=== PATIENT | male | born 1950 | race Caucasian/White ===

== ENCOUNTER 2023-12-28 14:25 | Inpatient (IN) | payer OTHER, MEDICARE ==
[~2023-12-28] VITALS: Ht 195.6 cm; Wt 115.2 kg
[2023-12-28 19:54] LABS: ALBUMIN 3.3 G/DL (3.4-5.0); ANION GAP 10 (8-16); BLOOD UREA NITROGEN 10 MG/DL (7-18); BUN/CREATININE RATIO 13.2 (10.0-20.0); CALCIUM 8.8 MG/DL (8.5-10.1); CHLORIDE 102 MMOL/L (99-107); CREATININE 0.76 MG/DL (0.60-1.10); GLUCOSE 120 MG/DL (70-104); POTASSIUM 3.6 MMOL/L (3.5-5.1); SODIUM 137 MMOL/L (135-145); TOTAL CARBON DIOXIDE 24.9 MMOL/L (24-32); eGFR > 90 ML/MIN
[2023-12-28 19:59] LABS: APTT 26 SECONDS (22-32); PROTHROMBIN TIME 10.9 SECONDS (9.0-12.0)
[2023-12-28 20:51] LABS: BASOPHILS % (AUTO) 0.6 % (0-1); EOSINOPHILS % (AUTO) 0.6 % (0-6); HEMATOCRIT 31.7 % (42.0-52.0); HEMOGLOBIN 10.9 g/dl (14.0-17.9); LYMPHOCYTES # (AUTO) 1.1 X10'3 (1.1-4.8); LYMPHOCYTES % (AUTO) 14.9 % (21-51); MEAN CORPUSCULAR HEMOGLOBIN 32.5 PG (27.0-31.0); MEAN CORPUSCULAR HGB CONC 34.2 g/dL (33.0-36.5); MEAN CORPUSCULAR VOLUME 95.1 FL (78-98); MEAN PLATELET VOLUME 7.5 FL (7.4-10.4); MONOCYTES # (AUTO) 0.6 X10'3 (0-0.9); NEUTROPHILS # (AUTO) 5.5 X10'3 (1.8-7.7); NEUTROPHILS % (AUTO) 75.9 % (42-75); PLATELET COUNT 253 X10'3 (140-440); RED BLOOD COUNT 3.34 X10'6 (4.70-6.10); RED CELL DISTRIBUTION WIDTH 13.4 % (11.5-14.5); WHITE BLOOD COUNT 7.3 X10'3 (4.5-11.0)
[2023-12-28] MEDS ORDERED: iohexol 300mg/ml 100ml inj. ONE (21:27)
[2023-12-28 22:43] LABS: CLARITY,URINE BLOODY (Clear); COLOR,URINE RED (Yellow); UA COLLECTION TYPE CLN CATCH MIDSTREAM
[2023-12-28 22:49] LABS: RBC,URINE TNTC /HPF (0-2)
[2023-12-28 22:52] LABS: SQUAMOUS EPITHELIAL CELL,UR NONE SEEN /LPF (FEW)
[2023-12-28 22:53] LABS: BACTERIA,URINE NONE SEEN /HPF (Neg); MUCUS STRANDS NONE SEEN /LPF (Neg); WBC,URINE 0-4 /HPF (0-4)
[2023-12-29] MEDS ORDERED: ondansetron/PF 4mg/2ml inj IV PRN (00:10)
[2023-12-29] MEDS ORDERED: magnesium Cl slow-release 64mg tablet PO PRN (00:10)
[2023-12-29] MEDS ORDERED: potassium Cl 20 mEq SR tablet PO PRN ×2 (00:10)
[2023-12-29] MEDS ORDERED: potassium Cl 40MEQ/1/2NS 520ml 520 ML IV PRN (00:10)
[2023-12-29] MEDS ORDERED: magnesium sulf-water 2g/50mL 50 ML IV PRN (00:10)
[2023-12-29] MEDS ORDERED: magnesium sulf-water 4G/100mL 100 ML IV PRN (00:10)
[2023-12-29] MEDS ORDERED: acetaminophen 325mg tablet PO PRN (00:10)
[2023-12-29] MEDS ORDERED: DEXTROSE 15 GM of carb/4 tabs (each vial/BOTTLE has 4 tablets) PO PRN ×2 (00:35)
[2023-12-29] MEDS ORDERED: dextrose 50%-water 50ml dispensing syringe IV PRN ×2 (00:35)
[2023-12-29] MEDS ORDERED: glucagon, human recombinant 1mg kit SUBCUT PRN (00:35)
[2023-12-29] MEDS: nicotine 14mg patch - 24hr TD ONE (00:45)
[2023-12-29] MEDS: normal saline 1000ml 1,000 ML IV SCH (01:00)
[2023-12-29 01:45] LABS: HEMOGLOBIN A1C 6.1 % (4.5-6.2)
[2023-12-29 01:50] LABS: CHOL/HDL RATIO 2.4 (0.00-4.99); CHOLESTEROL 92 MG/DL (0-200); HDL CHOLESTEROL 38 MG/DL (35-60); LDL CHOLESTEROL 51 MG/DL (50-100); TRIGLYCERIDES 47 MG/DL (20-135)
[2023-12-29] MEDS: INSULIN LISPRO 100 UNIT/ML INSULN.PEN MULTI-DOSE SQ SCH (07:00)
[2023-12-29 07:42] VITALS: BP 124/62; PULSE 84; RESP 12; TEMP 97.8; O2SAT 99
[2023-12-29 07:55] VITALS: RESP 18; O2SAT 96
[2023-12-29] MEDS: K and/or MAG REPLACEMENT MC SCH (08:00)
[2023-12-29] MEDS: fluconazole-Diflucan 200mg/NS 100 ML IV SCH (10:25)
[2023-12-29 10:27] LABS: BASOPHILS % (AUTO) 0.7 % (0-1); EOSINOPHILS # (AUTO) 0.1 X10'3 (0-0.9); EOSINOPHILS % (AUTO) 1.2 % (0-6); HEMATOCRIT 27.8 % (42.0-52.0); HEMOGLOBIN 9.5 g/dl (14.0-17.9); LYMPHOCYTES # (AUTO) 0.8 X10'3 (1.1-4.8); LYMPHOCYTES % (AUTO) 11.5 % (21-51); MEAN CORPUSCULAR HEMOGLOBIN 32.3 PG (27.0-31.0); MEAN PLATELET VOLUME 6.9 FL (7.4-10.4); MONOCYTES # (AUTO) 0.5 X10'3 (0-0.9); MONOCYTES % (AUTO) 7.7 % (2-12); NEUTROPHILS # (AUTO) 5.6 X10'3 (1.8-7.7); NEUTROPHILS % (AUTO) 78.9 % (42-75); PLATELET COUNT 221 X10'3 (140-440); RED BLOOD COUNT 2.93 X10'6 (4.70-6.10); RED CELL DISTRIBUTION WIDTH 13.8 % (11.5-14.5)
[2023-12-29 10:37] VITALS: BP 119/58; PULSE 50; RESP 18; TEMP 98.5; O2SAT 98
[2023-12-29 10:44] LABS: ALANINE AMINOTRANSFERASE 11 U/L (12-78); ALBUMIN 2.8 G/DL (3.4-5.0); ALBUMIN/GLOBULIN RATIO 0.9 (1.1-1.5); ALKALINE PHOSPHATASE 82 IU/L (46-116); ANION GAP 9 (8-16); ASPARTATE AMINO TRANSFERASE 16 U/L (10-37); BILIRUBIN,TOTAL 0.9 MG/DL (0.1-1.0); BLOOD UREA NITROGEN 7 MG/DL (7-18); BUN/CREATININE RATIO 12.1 (10.0-20.0); CALCIUM 8.2 MG/DL (8.5-10.1); CHLORIDE 105 MMOL/L (99-107); CREATININE 0.58 MG/DL (0.60-1.10); GLUCOSE 106 MG/DL (70-104); POTASSIUM 3.6 MMOL/L (3.5-5.1); SODIUM 139 MMOL/L (135-145); TOTAL CARBON DIOXIDE 24.7 MMOL/L (24-32); TOTAL PROTEIN 5.9 G/DL (6.4-8.2); eCRCL 147 ML/MIN; eGFR > 90 ML/MIN
[2023-12-29 18:00] VITALS: BP 125/60; PULSE 77; RESP 15; TEMP 97.6; O2SAT 99
[2023-12-29 20:20] VITALS: RESP 18
[2023-12-29 22:00] VITALS: BP 134/55; PULSE 64; RESP 14; TEMP 98.1; O2SAT 96
[2023-12-29] MEDS ORDERED: BICA50TA7 PO (23:04)
[2023-12-29] MEDS ORDERED: ATOR20TA PO (23:04)
[2023-12-30] VITALS (15 sets, daily range): BP systolic 113–143; BP diastolic 58–99; PULSE 68–91; RESP 15–19; TEMP 97.5–98; O2SAT 97–100
[2023-12-30] MEDS ORDERED: METF-436 PO (03:09)
[2023-12-30 05:54] LABS: BASOPHILS % (AUTO) 0.6 % (0-1); EOSINOPHILS # (AUTO) 0.2 X10'3 (0-0.9); EOSINOPHILS % (AUTO) 2.2 % (0-6); HEMATOCRIT 27.4 % (42.0-52.0); HEMOGLOBIN 9.3 g/dl (14.0-17.9); LYMPHOCYTES # (AUTO) 1.1 X10'3 (1.1-4.8); LYMPHOCYTES % (AUTO) 15.3 % (21-51); MEAN CORPUSCULAR HEMOGLOBIN 32.5 PG (27.0-31.0); MEAN CORPUSCULAR VOLUME 95.5 FL (78-98); MEAN PLATELET VOLUME 7.3 FL (7.4-10.4); MONOCYTES # (AUTO) 0.5 X10'3 (0-0.9); MONOCYTES % (AUTO) 6.7 % (2-12); NEUTROPHILS # (AUTO) 5.2 X10'3 (1.8-7.7); NEUTROPHILS % (AUTO) 75.2 % (42-75); PLATELET COUNT 219 X10'3 (140-440); RED BLOOD COUNT 2.87 X10'6 (4.70-6.10); RED CELL DISTRIBUTION WIDTH 13.4 % (11.5-14.5); WHITE BLOOD COUNT 6.9 X10'3 (4.5-11.0)
[2023-12-30 06:12] LABS: APTT 27 SECONDS (22-32); INR 1.1 INR
[2023-12-30 06:15] LABS: ALANINE AMINOTRANSFERASE 13 U/L (12-78); ALBUMIN 2.8 G/DL (3.4-5.0); ALBUMIN/GLOBULIN RATIO 0.8 (1.1-1.5); ALKALINE PHOSPHATASE 82 IU/L (46-116); ANION GAP 9 (8-16); ASPARTATE AMINO TRANSFERASE 16 U/L (10-37); BILIRUBIN,TOTAL 0.7 MG/DL (0.1-1.0); BLOOD UREA NITROGEN 6 MG/DL (7-18); CHLORIDE 106 MMOL/L (99-107); GLUCOSE 90 MG/DL (70-104); POTASSIUM 3.8 MMOL/L (3.5-5.1); SODIUM 139 MMOL/L (135-145); TOTAL CARBON DIOXIDE 24.4 MMOL/L (24-32); TOTAL PROTEIN 6.1 G/DL (6.4-8.2); eCRCL 138 ML/MIN; eGFR > 90 ML/MIN
[2023-12-30] MEDS ORDERED: midazolam 1 mg/ML 2ml injection ONE (12:55)
[2023-12-30] MEDS ORDERED: fentaNYL/PF 50MCG/1 ML 2ML syringe ONE (12:55)
[2023-12-30 13:18] LABS: PSA, FREE >50.00 ng/mL
[2023-12-30] MEDS ORDERED: LIDOcaine 1% (10mg/ml) 2ml vial ONE (13:33)
[2023-12-31] VITALS (9 sets, daily range): BP systolic 102–124; BP diastolic 46–60; PULSE 64–83; RESP 14–20; TEMP 97.2–98; O2SAT 98–100
[2023-12-31 05:04] LABS: BASOPHILS % (AUTO) 0.5 % (0-1); EOSINOPHILS # (AUTO) 0.2 X10'3 (0-0.9); EOSINOPHILS % (AUTO) 2.9 % (0-6); HEMOGLOBIN 8.8 g/dl (14.0-17.9); LYMPHOCYTES # (AUTO) 1.1 X10'3 (1.1-4.8); LYMPHOCYTES % (AUTO) 18.6 % (21-51); MEAN CORPUSCULAR HEMOGLOBIN 33.6 PG (27.0-31.0); MEAN CORPUSCULAR HGB CONC 35.2 g/dL (33.0-36.5); MEAN CORPUSCULAR VOLUME 95.6 FL (78-98); MEAN PLATELET VOLUME 7.3 FL (7.4-10.4); MONOCYTES # (AUTO) 0.4 X10'3 (0-0.9); MONOCYTES % (AUTO) 7.6 % (2-12); NEUTROPHILS # (AUTO) 4.2 X10'3 (1.8-7.7); NEUTROPHILS % (AUTO) 70.4 % (42-75); PLATELET COUNT 229 X10'3 (140-440); RED BLOOD COUNT 2.61 X10'6 (4.70-6.10); RED CELL DISTRIBUTION WIDTH 13.3 % (11.5-14.5); WHITE BLOOD COUNT 5.9 X10'3 (4.5-11.0)
[2023-12-31 05:16] LABS: APTT 28 SECONDS (22-32); INR 1.1 INR
[2023-12-31 05:22] LABS: ALANINE AMINOTRANSFERASE 10 U/L (12-78); ALBUMIN 2.6 G/DL (3.4-5.0); ALBUMIN/GLOBULIN RATIO 0.8 (1.1-1.5); ALKALINE PHOSPHATASE 75 IU/L (46-116); ANION GAP 8 (8-16); ASPARTATE AMINO TRANSFERASE 23 U/L (10-37); BILIRUBIN,TOTAL 0.6 MG/DL (0.1-1.0); BLOOD UREA NITROGEN 6 MG/DL (7-18); BUN/CREATININE RATIO 9.1 (10.0-20.0); CALCIUM 7.7 MG/DL (8.5-10.1); CHLORIDE 105 MMOL/L (99-107); CREATININE 0.66 MG/DL (0.60-1.10); GLUCOSE 93 MG/DL (70-104); POTASSIUM 3.6 MMOL/L (3.5-5.1); SODIUM 137 MMOL/L (135-145); TOTAL CARBON DIOXIDE 23.8 MMOL/L (24-32); TOTAL PROTEIN 5.8 G/DL (6.4-8.2); eCRCL 126 ML/MIN; eGFR > 90 ML/MIN
[2024-01-01 05:07] LABS: BASOPHILS % (AUTO) 0.7 % (0-1); EOSINOPHILS # (AUTO) 0.2 X10'3 (0-0.9); EOSINOPHILS % (AUTO) 3.4 % (0-6); HEMATOCRIT 24.2 % (42.0-52.0); HEMOGLOBIN 8.6 g/dl (14.0-17.9); LYMPHOCYTES % (AUTO) 20.6 % (21-51); MEAN CORPUSCULAR HEMOGLOBIN 33.4 PG (27.0-31.0); MEAN CORPUSCULAR HGB CONC 35.5 g/dL (33.0-36.5); MEAN CORPUSCULAR VOLUME 94.2 FL (78-98); MEAN PLATELET VOLUME 7.3 FL (7.4-10.4); MONOCYTES # (AUTO) 0.4 X10'3 (0-0.9); MONOCYTES % (AUTO) 8.2 % (2-12); NEUTROPHILS # (AUTO) 3.4 X10'3 (1.8-7.7); NEUTROPHILS % (AUTO) 67.1 % (42-75); PLATELET COUNT 236 X10'3 (140-440); RED BLOOD COUNT 2.56 X10'6 (4.70-6.10); RED CELL DISTRIBUTION WIDTH 13.7 % (11.5-14.5); WHITE BLOOD COUNT 5.1 X10'3 (4.5-11.0)
[2024-01-01 05:21] LABS: ALANINE AMINOTRANSFERASE 12 U/L (12-78); ALBUMIN 2.6 G/DL (3.4-5.0); ALBUMIN/GLOBULIN RATIO 0.8 (1.1-1.5); ALKALINE PHOSPHATASE 75 IU/L (46-116); ANION GAP 6 (8-16); ASPARTATE AMINO TRANSFERASE 22 U/L (10-37); BILIRUBIN,TOTAL 0.6 MG/DL (0.1-1.0); BLOOD UREA NITROGEN 4 MG/DL (7-18); CALCIUM 7.8 MG/DL (8.5-10.1); CHLORIDE 107 MMOL/L (99-107); CREATININE 0.67 MG/DL (0.60-1.10); GLUCOSE 113 MG/DL (70-104); POTASSIUM 3.3 MMOL/L (3.5-5.1); SODIUM 137 MMOL/L (135-145); TOTAL CARBON DIOXIDE 24.1 MMOL/L (24-32); TOTAL PROTEIN 5.8 G/DL (6.4-8.2); eCRCL 124 ML/MIN; eGFR > 90 ML/MIN
[2024-01-01 05:27] LABS: APTT 26 SECONDS (22-32); INR 1.1 INR; PROTHROMBIN TIME 11.1 SECONDS (9.0-12.0)
[2024-01-01 06:00] VITALS: BP 136/65; PULSE 82; RESP 20; TEMP 97.6; O2SAT 99
[2024-01-01] MEDS ORDERED: magnesium Cl slow-release 64mg tablet PO PRN (07:50)
[2024-01-01] MEDS ORDERED: potassium Cl 40MEQ/1/2NS 520ml 520 ML IV PRN (07:50)
[2024-01-01] MEDS ORDERED: magnesium sulf-water 2g/50mL 50 ML IV PRN (07:50)
[2024-01-01] MEDS ORDERED: magnesium sulf-water 4G/100mL 100 ML IV PRN (07:50)
[2024-01-01] MEDS ORDERED: potassium Cl 20 mEq SR tablet PO PRN (07:50)
[2024-01-01 08:30] VITALS: RESP 18; O2SAT 100
[2024-01-01] MEDS: potassium Cl 20 mEq SR tablet PO PRN (09:25)
[2024-01-01 10:00] VITALS: BP 121/47; PULSE 75; RESP 20; TEMP 97.8; O2SAT 100
[2024-01-01] MEDS: mineral oil 133ml enema RC PRN (15:01)
[2024-01-01 18:00] VITALS: BP 123/60; PULSE 70; RESP 20; TEMP 97.3; O2SAT 100
[2024-01-01 20:00] VITALS: RESP 20; O2SAT 100
[2024-01-01] MEDS: lactulose 20gm/30ml cup PO SCH (20:00)
[2024-01-01] MEDS: nystatin 15 GM powder TP SCH (20:00)
[2024-01-01 22:00] VITALS: BP 136/50; PULSE 70; RESP 18; TEMP 97.8; O2SAT 97
[2024-01-02] VITALS (7 sets, daily range): BP systolic 117–124; BP diastolic 54–60; PULSE 65–75; RESP 14–18; TEMP 97.4–98.4; O2SAT 95–98
[2024-01-02 06:17] LABS: PROTHROMBIN TIME 10.9 SECONDS (9.0-12.0)
[2024-01-02 06:31] LABS: ALANINE AMINOTRANSFERASE 15 U/L (12-78); ALBUMIN 2.8 G/DL (3.4-5.0); ALBUMIN/GLOBULIN RATIO 0.9 (1.1-1.5); ALKALINE PHOSPHATASE 82 IU/L (46-116); ANION GAP 8 (8-16); ASPARTATE AMINO TRANSFERASE 17 U/L (10-37); BILIRUBIN,TOTAL 0.7 MG/DL (0.1-1.0); BLOOD UREA NITROGEN 3 MG/DL (7-18); BUN/CREATININE RATIO 4.6 (10.0-20.0); CALCIUM 8.4 MG/DL (8.5-10.1); CHLORIDE 108 MMOL/L (99-107); CREATININE 0.65 MG/DL (0.60-1.10); GLUCOSE 113 MG/DL (70-104); SODIUM 139 MMOL/L (135-145); TOTAL CARBON DIOXIDE 23.3 MMOL/L (24-32); eCRCL 128 ML/MIN; eGFR > 90 ML/MIN
[2024-01-02 06:41] LABS: BASOPHILS # (AUTO) 0.1 X10'3 (0-0.2); BASOPHILS % (AUTO) 1.1 % (0-1); EOSINOPHILS # (AUTO) 0.2 X10'3 (0-0.9); EOSINOPHILS % (AUTO) 3.8 % (0-6); HEMATOCRIT 27.1 % (42.0-52.0); HEMOGLOBIN 9.4 g/dl (14.0-17.9); LYMPHOCYTES # (AUTO) 1.1 X10'3 (1.1-4.8); LYMPHOCYTES % (AUTO) 22.9 % (21-51); MEAN CORPUSCULAR HEMOGLOBIN 32.5 PG (27.0-31.0); MEAN CORPUSCULAR HGB CONC 34.7 g/dL (33.0-36.5); MEAN CORPUSCULAR VOLUME 93.7 FL (78-98); MEAN PLATELET VOLUME 7.5 FL (7.4-10.4); MONOCYTES # (AUTO) 0.4 X10'3 (0-0.9); NEUTROPHILS % (AUTO) 64.2 % (42-75); PLATELET COUNT 243 X10'3 (140-440); RED BLOOD COUNT 2.89 X10'6 (4.70-6.10); RED CELL DISTRIBUTION WIDTH 13.7 % (11.5-14.5); WHITE BLOOD COUNT 4.8 X10'3 (4.5-11.0)
[2024-01-03 06:43] LABS: BASOPHILS # (AUTO) 0.1 X10'3 (0-0.2); BASOPHILS % (AUTO) 0.9 % (0-1); EOSINOPHILS # (AUTO) 0.2 X10'3 (0-0.9); EOSINOPHILS % (AUTO) 3.5 % (0-6); HEMATOCRIT 27.8 % (42.0-52.0); HEMOGLOBIN 9.9 g/dl (14.0-17.9); LYMPHOCYTES # (AUTO) 1.4 X10'3 (1.1-4.8); LYMPHOCYTES % (AUTO) 23.9 % (21-51); MEAN CORPUSCULAR HEMOGLOBIN 33.3 PG (27.0-31.0); MEAN CORPUSCULAR HGB CONC 35.5 g/dL (33.0-36.5); MEAN CORPUSCULAR VOLUME 93.8 FL (78-98); MEAN PLATELET VOLUME 7.6 FL (7.4-10.4); MONOCYTES # (AUTO) 0.5 X10'3 (0-0.9); MONOCYTES % (AUTO) 7.9 % (2-12); NEUTROPHILS # (AUTO) 3.8 X10'3 (1.8-7.7); NEUTROPHILS % (AUTO) 63.8 % (42-75); PLATELET COUNT 294 X10'3 (140-440); RED BLOOD COUNT 2.96 X10'6 (4.70-6.10); RED CELL DISTRIBUTION WIDTH 13.6 % (11.5-14.5); WHITE BLOOD COUNT 5.9 X10'3 (4.5-11.0)
[2024-01-03 06:56] LABS: PROTHROMBIN TIME 10.6 SECONDS (9.0-12.0)
[2024-01-03 07:03] LABS: ALANINE AMINOTRANSFERASE 18 U/L (12-78); ALBUMIN 2.9 G/DL (3.4-5.0); ALBUMIN/GLOBULIN RATIO 0.9 (1.1-1.5); ALKALINE PHOSPHATASE 95 IU/L (46-116); ANION GAP 8 (8-16); ASPARTATE AMINO TRANSFERASE 23 U/L (10-37); BILIRUBIN,TOTAL 0.6 MG/DL (0.1-1.0); BLOOD UREA NITROGEN 2 MG/DL (7-18); BUN/CREATININE RATIO 3.1 (10.0-20.0); CALCIUM 8.5 MG/DL (8.5-10.1); CHLORIDE 107 MMOL/L (99-107); CREATININE 0.64 MG/DL (0.60-1.10); GLUCOSE 113 MG/DL (70-104); POTASSIUM 3.8 MMOL/L (3.5-5.1); SODIUM 139 MMOL/L (135-145); TOTAL CARBON DIOXIDE 24.3 MMOL/L (24-32); TOTAL PROTEIN 6.3 G/DL (6.4-8.2); eCRCL 130 ML/MIN; eGFR > 90 ML/MIN
[2024-01-03 07:10] VITALS: BP 131/58; PULSE 63; RESP 18; TEMP 98.6; O2SAT 99
[2024-01-03 08:00] VITALS: RESP 16
[2024-01-03] MEDS: mineral oil 133ml enema RC STA (11:39)
[2024-01-03 18:00] VITALS: BP 123/60; PULSE 76; RESP 18; TEMP 97.8; O2SAT 98
[2024-01-03] MEDS: NICOTINE POLACRILEX 2 MG LOZENGE BC PRN (18:04)
[2024-01-03 20:00] VITALS: RESP 18
[2024-01-03 22:00] VITALS: BP 122/61; PULSE 66; RESP 14; TEMP 97.4; O2SAT 99
[2024-01-04 06:00] VITALS: BP 120/65; PULSE 62; RESP 13; TEMP 97.4; O2SAT 95
[2024-01-04 08:00] VITALS: RESP 13; O2SAT 95
[2024-01-04 11:00] VITALS: BP 138/66; PULSE 70; RESP 16; TEMP 97.9; O2SAT 100
[2024-01-04] MEDS ORDERED: LORazepam 0.5 MG tablet PO PRN (12:00)
[2024-01-04] MEDS ORDERED: ondansetron 4mg rapidly disintigrating tab PO PRN (12:00)
[2024-01-04] MEDS ORDERED: morphine 10mg/0.5ml (conc. morphine) oral syringe PO PRN (12:00)
[2024-01-04] MEDS ORDERED: hyoscyamine 0.125mg TAB.SUBL SL PRN (12:00)
[2024-01-04] MEDS ORDERED: morphine ORAL 5MG/0.25 ML (Conc. morphine) oral syringe PO STA (15:07)
[2024-01-04] MEDS: morphine 10mg/0.5ml (conc. morphine) oral syringe PO STA (15:19)
[2024-01-04 18:00] VITALS: BP 123/60; PULSE 76; RESP 14; TEMP 97.4; O2SAT 99
[2024-01-04] MEDS ORDERED: lactose-reduced food (Ensure Enlive) - 237ml bottle PO SCH (18:00)
[2024-01-04 20:00] VITALS: RESP 16
[2024-01-04 22:00] VITALS: BP 109/57; PULSE 69; RESP 12; TEMP 97.9; O2SAT 99
[2024-01-05 06:00] VITALS: BP 111/49; PULSE 66; RESP 13; TEMP 97.6; O2SAT 97
[2024-01-05 07:43] VITALS: RESP 14; O2SAT 97
[2024-01-05 08:00] VITALS: RESP 13; O2SAT 97
[2024-01-05] MEDS: morphine 10mg/0.5ml (conc. morphine) oral syringe PO ONE (13:06)
== END 2024-01-05 15:05 | disposition hospice, inpatient (51) | DRG 699 ==
LOC: ER 14:26 → ED HOLD 12-29 00:11 → SUR 3N 12-29 07:20
PROVIDERS: ADMIT Internal Medicine Critical Care Medicine; ATTEND Family Medicine
PROC: 07DD3ZX Extraction of Aortic Lymphatic, Percutaneous Approach, Diagnostic (ICD-10-PCS; principal; 2023-12-30)
PROC: 30233N1 Transfusion of Nonautologous Red Blood Cells into Peripheral Vein, Percutaneous Approach (ICD-10-PCS; 2024-01-01)
PROC: 0HBRXZZ Excision of Toe Nail, External Approach (ICD-10-PCS; 2024-01-04)
PROC: 0HBRXZZ Excision of Toe Nail, External Approach (ICD-10-PCS; 2024-01-04)
PROC: 0HBRXZZ Excision of Toe Nail, External Approach (ICD-10-PCS; 2024-01-04)
PROC: 0HBRXZZ Excision of Toe Nail, External Approach (ICD-10-PCS; 2024-01-04)
PROC: 0HBRXZZ Excision of Toe Nail, External Approach (ICD-10-PCS; 2024-01-04)
PROC: 0HBRXZZ Excision of Toe Nail, External Approach (ICD-10-PCS; 2024-01-04)
PROC: 0HBRXZZ Excision of Toe Nail, External Approach (ICD-10-PCS; 2024-01-04)
PROC: 0HBRXZZ Excision of Toe Nail, External Approach (ICD-10-PCS; 2024-01-04)
PROC: 0HBRXZZ Excision of Toe Nail, External Approach (ICD-10-PCS; 2024-01-04)
PROC: 0HBRXZZ Excision of Toe Nail, External Approach (ICD-10-PCS; 2024-01-04)
DX: N32.9 Bladder disorder, unspecified (principal); C79.51 Secondary malignant neoplasm of bone; E44.0 Moderate protein-calorie malnutrition; N13.30 Unspecified hydronephrosis; D64.9 Anemia, unspecified; E11.9 Type 2 diabetes mellitus without complications; I87.2 Venous insufficiency (chronic) (peripheral); F17.210 Nicotine dependence, cigarettes, uncomplicated; E78.5 Hyperlipidemia, unspecified; B35.1 Tinea unguium; K59.00 Constipation, unspecified; Z68.30 Body mass index [BMI] 30.0-30.9, adult; Z79.84 Long term (current) use of oral hypoglycemic drugs; Z85.46 Personal history of malignant neoplasm of prostate; Z92.3 Personal history of irradiation
CPT/HCPCS: 36415; 36430; 38505; 71045; 74018; 74177; 77012; 78306; 80048; 80053; 80061; 81001; 82948; 83036; 84153; 84154; 85025; 85610; 85730; 86885; 86900; 86901; 86920; 87081; 92508; 92616; 93005; 93925; 93970; 97110; 97116; 97161; 97530; 97535; 99152; 99153; 99285; A4615; A6213; A6250; A6449; A6590; A9503; G0378; J1450; J2250; J3010; J3490; J7030; J7040; P9016; Q9967